=== PATIENT | female | born 1990 | race Caucasian/White ===

== ENCOUNTER 2018-12-10 00:24 | Inpatient (IN) | payer OTHER ==
--- NOTE | 2018-12-10 18:04 | PR ---
[facility] [address] [facility] [place], [place] [address] Signed Progress Notes IP Datetime Report Generated by CPN: 12/10/2018 18:04 PROGRESS NOTES: [id number] Impression: Normal progression of labor Procedures: Artificial ROM Plan: Continue present management; Anticipate Vaginal Delivery VITAL SIGNS: [id number] Vital Signs: Reviewed; Within Normal Limits EXAM: [id number] Dilatation: 3.5 Effacement: 50 Station: -3 Uterine Contractions: every 1-2 minutes MEMBRANES: [id number] Membrane Status: Ruptured Amniotic Fluid Color: Clear ROM Note: AROM without difficulty, moderate amount clear fluid Comments: Doing well, beginning to make progress. Patient planning on NCB at this time. Fetus A: [id number] FHR Baseline: 145 Variability: Moderate 6-25bpm Accelerations: 15X15 Presentation: Vertex Fetus B: [id number] Signing Physician: Bakari Foreman MD Copies: ~ *Electronically Signed* 12/10/18 1804 BAKARI FOREMAN MD PATIENT NAME: JAISONFLORESITA Londono PROGRESS NOTE DATE OF : 90 PHYSICIAN: BAKARI FOREMAN MD RPT #: [id number] REPORT IS CONFIDENTIAL AND NOT TO BE RELEASED WITHOUT AUTHORIZATION
--- NOTE | 2018-12-11 09:57 | PR ---
[facility] [address] [facility] [place], [place] [address] Signed PP Progress Notes Datetime Report Generated by CPN: 12/11/2018 09:57 SUBJECTIVE: [id number] Pain: Abnormal Pain Comments: uterine cramping not being reliefved with Ibuprofen Nausea/Vomiting: Denies Vital Signs: [id number] Vital Signs: Reviewed; Within Normal Limits Notable Details: PP Hgb/Hct = 11.9/34.6 EXAM: [id number] Abdomen/Uterus: Normal Lochia: Normal Extremities: Normal IMPRESSION/PLAN/PROCEDURES: [id number] Impression: Normal progression Plan: Continue present management Procedures: None Progress Notes: Rx: Percocet since allergic to Viciodin; discussed possible allergic reaciton to Percocet, but will try while in [facility] Signing Physician: Rossi Foreman MD Copies: ~ *Electronically Signed* 12/11/18 0957 ROSSI FOREMAN MD PATIENT NAME: FLORESITA BLACKWOOD PROGRESS NOTE DATE OF : 90 PHYSICIAN: ROSSI FOREMAN MD RPT #: [id number] REPORT IS CONFIDENTIAL AND NOT TO BE RELEASED WITHOUT AUTHORIZATION
--- NOTE | 2018-12-12 11:26 | PR ---
[facility] [address] [facility] [place], [place] [address] Signed PP Progress Notes Datetime Report Generated by CPN: 12/12/2018 11:26 SUBJECTIVE: [id number] Pain: Within normal limits Pain Comments: uterine cramping not being reliefved with Ibuprofen Nausea/Vomiting: Denies Vital Signs: [id number] Vital Signs: Reviewed; Within Normal Limits Notable Details: PP Hgb/Hct = 11.9/34.6 EXAM: [id number] Abdomen/Uterus: Normal Lochia: Normal Extremities: Normal IMPRESSION/PLAN/PROCEDURES: [id number] Impression: Normal progression Plan: Discharge Procedures: None Progress Notes: Doing well without complalint, no longer needing pain meds, wants to go home. Signing Physician: Rossi Foreman MD Copies: ~ *Electronically Signed* 12/12/18 1126 ROSSI FOREMAN MD PATIENT NAME: FLORESITA BLACKWOOD PROGRESS NOTE DATE OF : 90 PHYSICIAN: ROSSI FOREMAN MD RPT #: [id number] REPORT IS CONFIDENTIAL AND NOT TO BE RELEASED WITHOUT AUTHORIZATION
== END 2018-12-12 13:45 | disposition home or self-care (01) | DRG 807 ==
LOC: FBC 00:24 → FBCO 08:25 → FBC 11:21 → FBCO 14:49 → EDSTATUS 17:56 → FBC 12-12 13:45
PROVIDERS: ADMIT General Practice
PROC: 10E0XZZ Delivery of Products of Conception, External Approach (ICD-10-PCS; principal; 2018-12-10)
PROC: 0HQ9XZZ Repair Perineum Skin, External Approach (ICD-10-PCS; 2018-12-10)
PROC: 10907ZC Drainage of Amniotic Fluid, Therapeutic from Products of Conception, Via Natural or Artificial Opening (ICD-10-PCS; 2018-12-10)
PROC: 3E0P7VZ Introduction of Hormone into Female Reproductive, Via Natural or Artificial Opening (ICD-10-PCS; 2018-12-10)
DX: O70.0 First degree perineal laceration during delivery (principal); Z37.0 Single live birth; Z3A.40 40 weeks gestation of pregnancy; Z88.5 Allergy status to narcotic agent
CPT/HCPCS: 36415; 59025; 85027; 99212; J2590